=== PATIENT | female | born 1930 | race Caucasian/White ===

== ENCOUNTER 2017-06-04 10:19 | Emergency (ER) | payer MEDICARE, MEDICAID ==
[~2017-06-04] VITALS: Ht 157.5 cm; Wt 45.5 kg
[2017-06-04 10:19] VITALS: PULSE 89; RESP 15; O2SAT 96
[~2017-06-04 10:19] MED LIST: ALBU8.5H2 INH; CALC600T87 PO; DOXY100C2 PO; ONDA4TAB9 PO; OXYC-169 PO
--- NOTE | 2017-06-04 11:34 | ED.REPORT ---
HPI-Dental/Mouth Prob Date of Service Jun 04, 2017 ED Provider: Doc,Ed MD History of Present Illness: 86-year-old female here for oral symptoms. She has been complaining of mouth pain and "thrush" since January. She has been treated for times with nystatin in different forms and they have made no difference. She has mainly been treated at the urgent care although her neurologist Dr. Bowles has also treated her. She has no history of diabetes. She does not use any steroids. Her mouth symptoms are small painful bumps on bilateral sides of her tongue and in her proximal tongue. These bumps get worse when she eats and the symptoms will go away if she does not eat. Just complains of a film on her mouth which is worse in the morning goes away after drinking coffee. It gets worse after eating corned bread. She has some blood work pending through oncology, she is awaiting to do this. She has a referral to ENT but she did not think this was a proper referral. She is very frustrated with the medical community in general not being able to treat her oral symptoms. 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 She also complains of weight loss that she is unable to get drink as much as she normally would. Also has a history of chronic pain and is on Nucynta for this. Nursing Notes Stated Complaint: ORAL THRUSH Chief Complaint: General Complaint Nursing Notes Reviewed: Yes Allergies: Coded Allergies: Penicillins (Verified Allergy, Mild, 06/04/17) RASH carisoprodol (Verified Allergy, Unknown, 06/04/17) ketorolac (Verified Allergy, Unknown, 06/04/17) methocarbamol (Verified Allergy, Unknown, 06/04/17) naproxen (Verified Allergy, Unknown, 06/04/17) pregabalin (Verified Allergy, Unknown, 06/04/17) zolpidem (Verified Allergy, Unknown, 06/04/17) Scheduled Calcium Carbonate (Calcium Carbonate) 600 Mg Tablet 600 MG PO DAILY Doxycycline Hyclate (Doxycycline Hyclate) 100 Mg Capsule 100 MG PO BID Lidocaine HCl (Lidocaine HCl) 5 Ml Jel 5 ML MM 5XD apply viscous lidocaine with a qtip to painful areas on tongue 5x per day as needed for pain Scheduled PRN Albuterol HFA (Proair HFA) 8.5 Gm Hfa.aer.ad 1-2 PUFF INH PRN PRN PRN For Wheezing Ondansetron ODT (Zofran ODT) 4 Mg Tablet 4 MG PO Q4H PRN PRN For Nausea Oxycodone HCl/Acetaminophen (Endocet 7.5-325 mg Tablet) 1 Each Tablet 1 TAB PO Q6 HR PRN PRN For Pain General Time Seen by MD: 11:27 Chief Complaint Mouth pain, Oral sores, Thrush, Tongue pain Hx Obtained From: Patient Arrived By: Walk-in Onset Occurred: More than a week ago... (4 months) Symptom Duration: Intermittent Severity: Current: Moderate Severity: Maximum: Severe Recent Healthcare: Recent doctor visit, Previous diagnosis, Prior workup Similar Sx Previous: Yes Past Medical History Past Medical History Fibromyalgia Chronic constipation Review of Systems Basic Review of Systems Eyes: Vision NL, No discharge Cardiovascular: No chest pain, No dyspnea on exertion, No orthopnea, No parox noct dyspnea, No palpitations : No dysuria, No frequency Musculoskeletal: No extremity swelling, No extremity pain, Full range of motion , Joints NL Endocrine: No cold intolerance, No heat intolerance, No weight gain, No weight loss Skin: No bruising, No rash, No itch Allergy / Immune: No allergy Neurologic: NL mental status, No weakness, No numbness Psychiatric: Normal thought content Constitutional: Reports: Fatigue, Denies: Chills, Fever Ears / Nose / Throat: Reports: Mouth pain, Tongue pain, Denies: Throat pain, Throat swelling, Tongue swelling Respiratory: Denies: Dyspnea on exertion, Pleuritic pain GI: Denies: Abdominal pain, Anorexia, Constipation, Diarrhea, Nausea Complete sys rev & neg: except as marked. Physical Exam Initial Vital Signs Vital Signs (First) Date Time Temp Pulse Resp B/P Pulse Ox O2 Delivery O2 Flow Rate FiO2 06/04/17 10:19 37.2 89 15 96 Room Air Initial VS: Reviewed, Vital signs normal General/Constitutional: Well-developed, Well-nourished Head / Eyes: Atraumatic, Normocephalic, PERRL Respiratory: Breath sounds normal, Clear to auscultation, No respiratory distress Cardiovascular: Regular rate & rhythm, Heart sounds normal, Intact distal pulses Abdomen / GI: Soft, Non-tender, No guarding, No rebound, No distention Lymphatic: No lymphadenopathy Extremities: Vascular intact, Neuro intact, No swelling, No tenderness Skin: Warm, Dry, No cyanosis Neurologic: Alert, Oriented, Nonfocal Psychiatric: Mood/affect normal, Behavior normal, Normal thought content ENT: Atraumatic, Airway patent, Mucous membranes moist, Pharynx NL, No peritonsillar abscess, Tympanic membs NL, Ext aud canal NL, Mastoid area NL, Nose exam NL, No sinus tenderness, No facial swelling, Gums/dentition NL Patient has a geographic tongue but is slightly erythematous. Normal papillae noted. You can see the vasculature bilaterally over tongue, this is within normal limits. There are a few painful, tender bumps on either side of her tongue over the proximal tongue. Slight white hue noted over proximal tongue. Posterior pharynx, oral mucosa and buccal mucosa not erythematous. Re-Eval/Medical Decision Med Decision/Clinical Course Lengthy discussion with patient today. Has been treated for thrush for times and no relief at all, suggests that maybe this is not thrush and she should look for other answers and treatment. No new toothpaste or denture creams. Suggested ENT and she will follow-up with this. Suggested symptomatic care relief as well and prescribed viscous lidocaine. A similar symptoms this does not sound like thrush, it comes and go with certain foods she eats. Sounds more like an allergic reaction of some sort. Suggested ways to alleviate her symptoms until further diagnoses. Discharge & Departure Shift Change Sign-Out Response to Therapy: Unchanged Primary Impression: Mouth pain Additional Impression: Weight loss, unintentional Disposition: Home Discharge Condition All VS Reviewed: Yes Condition: Stable Patient Instructions: Oral Mucositis (ED) Additional Instructions: Follow up with your mouth pain with ENT specialist, you have the referral. Use the lidocaine with a qtip and apply to painful areas. Track/journal foods and drinks that make your symptoms better and worse. Try ensure with a straw, moist foods not to dehydrate you further. Use lidocaine and then drink lots of fluids. return here as needed. Referrals: Agustin Ryan MD (PCP) EDSupervising Provider for [facility]: Joesph Caal Linnea K ARNP Jun 04, 2017 11:34
[2017-06-04] MEDS ORDERED: LIDO5JEL4 MM (12:04)
== END 2017-06-04 12:04 | disposition home or self-care (01) ==
LOC: SED 10:19
DX: K13.79 Other lesions of oral mucosa (principal); R63.4 Abnormal weight loss; M79.7 Fibromyalgia; Z79.51 Long term (current) use of inhaled steroids; Z88.0 Allergy status to penicillin; Z88.8 Allergy status to other drugs, medicaments and biological substances